=== PATIENT | female | born 1945 | race Asian ===

== ENCOUNTER 2016-10-11 08:30 | Outpatient (CLI) | payer OTHER ==
[~2016-10-11 08:30] MED LIST: ACET-655 PO; ASPI81TA14 PO; DIPY200C PO; FURO20TA67 PO; GLUCOVANCE1 TA1 PO; HYDR25TA60 PO; JANUVIA100 MG PO; LIPITOR20 MG PO; LISI20TA11 PO; METO25TA4 PO; NIFE60TA5 PO; POTA20TA4 PO
== END 2016-10-11 19:27 | disposition home or self-care (01) ==
LOC: RESP 08:30
DX: R06.02 Shortness of breath (principal)
CPT/HCPCS: 94664

== ENCOUNTER 2016-11-15 11:04 | Observation (INO) | payer OTHER ==
[~2016-11-15] VITALS: Ht 157.5 cm; Wt 91.6 kg
[2016-11-15 13:01] VITALS: BP 114/48; TEMP 97.7; Ht 157.5 cm; Wt 91.6 kg
[2016-11-15 14:45] LABS: POTASSIUM 3.4 mmol/L (3.6-5.2)
[2016-11-15 15:02] LABS: PLATELET COUNT 249 K/uL (152-353)
[2016-11-15 16:00] VITALS: BP 153/62; TEMP 97.8
[2016-11-15 20:00] VITALS: BP 138/56; TEMP 98.1
[2016-11-16] VITALS: BP 132/68; TEMP 98.1
[2016-11-16 04:00] VITALS: BP 156/72; TEMP 98.2
[2016-11-16 08:00] VITALS: BP 156/52; TEMP 98.6
[2016-11-16] MEDS ORDERED: METO25TA4 OR (08:49)
[2016-11-16] MEDS ORDERED: JANUVIA100 MG PO (08:50)
[2016-11-16] MEDS ORDERED: GLIP10TA55 PO (08:53)
[2016-11-16] MEDS ORDERED: FORTAMET500 MG PO (08:54)
[2016-11-16 12:00] VITALS: BP 157/59; TEMP 97.6
[2016-11-16 16:00] VITALS: BP 153/60; TEMP 98.6
--- NOTE | 2016-11-16 19:10 | NUR ---
IV D/C'd. NO REDNESS OR EDEMA OBSERVED. DISCHARGE INSTRUCTIONS SIGNED AND GIVEN. Pt. EXIT OUT OF FRONT ENTRANCE VIA W/C. RX. CALLED TO [facility].
== END 2016-11-16 19:10 | disposition home or self-care (01) ==
LOC: MED/SURG 11:04
PROVIDERS: ADMIT Family Medicine
DX: J20.8 Acute bronchitis due to other specified organisms (principal); J01.90 Acute sinusitis, unspecified; J16.8 Pneumonia due to other specified infectious organisms; E11.9 Type 2 diabetes mellitus without complications
CPT/HCPCS: 80053; 82948; 85027; 87040; 87070; 87077; 87185; 87186; 87205; 93005; 94760; 96365; 96366; 96367; 96372; 99220; G0378; G0379

== ENCOUNTER 2017-01-13 15:24 | Outpatient (CLI) | payer OTHER ==
[~2017-01-13 15:24] MED LIST changes: +FORTAMET500 MG PO; +GLIP10TA55 PO; +METO25TA4 OR
== END 2017-01-13 16:30 | disposition home or self-care (01) ==
LOC: RAD 15:24
DX: J18.9 Pneumonia, unspecified organism (principal)

== ENCOUNTER 2017-09-02 18:11 | Emergency (ER) | payer OTHER ==
[~2017-09-02] VITALS: Ht 157.5 cm; Wt 87.5 kg
[2017-09-02 18:45] LABS: PLATELET COUNT 252 K/uL (152-353)
[2017-09-02 19:04] LABS: POTASSIUM 4.2 mmol/L (3.6-5.2)
[2017-09-02 19:25] VITALS: BP 153/47; TEMP 98.3
== END 2017-09-02 19:30 | disposition home or self-care (01) ==
LOC: ED 18:11
DX: R42 Dizziness and giddiness (principal); R00.1 Bradycardia, unspecified; E11.9 Type 2 diabetes mellitus without complications
CPT/HCPCS: 36415; 80053; 81000; 83036; 85027; 93005; 99283

== ENCOUNTER 2017-10-20 11:27 | Observation (INO) | payer OTHER ==
[~2017-10-20] VITALS: Ht 152.4 cm; Wt 90.0 kg
[2017-10-20 12:37] LABS: PLATELET COUNT 284 K/uL (152-353)
[2017-10-20 12:52] LABS: POTASSIUM 3.8 mmol/L (3.6-5.2); SODIUM 137 mmol/L (136-145)
[2017-10-20 12:58] LABS: PARTIAL THROMBOPLASTIN TIME 27.1 SECONDS (24.5-33.6)
[2017-10-20 13:55] VITALS: BP 148/52; TEMP 97.8; Ht 152.4 cm; Wt 90.0 kg
[2017-10-20 16:23] VITALS: BP 140/60; TEMP 97.7
[2017-10-20] MEDS ORDERED: INSUINJP SC (16:37)
[2017-10-20] MEDS ORDERED: METOPROLOL25 M1 SC (16:38)
[2017-10-20 20:00] VITALS: BP 127/53; TEMP 97.9
[2017-10-21] VITALS: BP 142/60; TEMP 98.1
[2017-10-21 04:00] VITALS: BP 166/60; TEMP 97.9
--- NOTE | 2017-10-21 04:32 | NUR ---
I FORGOT TO CHARGE PT FOR HER EKG EARLIER AT 2004 ON 10/20/17 SO I AM TRYING TO GO BACK AND FIX
[2017-10-21 08:00] VITALS: BP 155/57; TEMP 98.3
== END 2017-10-21 11:40 | disposition home or self-care (01) ==
LOC: MED/SURG 11:27
PROVIDERS: ADMIT Family Medicine
DX: R07.89 Other chest pain (principal); E86.0 Dehydration; R00.1 Bradycardia, unspecified; I51.7 Cardiomegaly; E11.9 Type 2 diabetes mellitus without complications
CPT/HCPCS: 36415; 80053; 82550; 83880; 84484; 85027; 85610; 85730; 87040; 93005; 96365; 96366; 99220; G0378; G0379; J1815

== ENCOUNTER 2018-07-13 12:37 | Emergency (ER) | payer OTHER ==
[~2018-07-13] VITALS: Ht 157.5 cm; Wt 87.5 kg
[~2018-07-13 12:37] MED LIST changes: +INSUINJP SC; +METOPROLOL25 M1 SC
[2018-07-13 13:14] LABS: PLATELET COUNT 274 K/uL (152-353)
[2018-07-13 13:24] LABS: POTASSIUM 3.4 mmol/L (3.6-5.2); SODIUM 141 mmol/L (136-145)
[2018-07-13 14:22] VITALS: BP 152/51; TEMP 97.5
== END 2018-07-13 14:30 | disposition home or self-care (01) ==
LOC: ED 12:37
DX: I50.9 Heart failure, unspecified (principal); R00.1 Bradycardia, unspecified; E11.9 Type 2 diabetes mellitus without complications
CPT/HCPCS: 36415; 80053; 81000; 82550; 82553; 83036; 83880; 84443; 84484; 85027; 93005; 99284

== ENCOUNTER 2018-08-24 08:53 | Outpatient (CLI) | payer OTHER ==
[2018-08-24 09:13] LABS: POTASSIUM 4.3 mmol/L (3.6-5.2)
== END 2018-08-24 18:59 | disposition home or self-care (01) ==
LOC: LABW 08:53
PROVIDERS: Nurse Practitioner Adult Health
DX: Z79.899 Other long term (current) drug therapy (principal)
CPT/HCPCS: 36415; 80048

== ENCOUNTER 2018-11-09 11:47 | Outpatient (CLI) | payer OTHER | END 2018-11-09 22:40 | disposition home or self-care (01) | LOC: LABW 11:47 | DX: I27.20 Pulmonary hypertension, unspecified (principal) ==

== ENCOUNTER 2018-11-13 08:46 | Outpatient (CLI) | payer OTHER | END 2018-11-13 19:45 | disposition home or self-care (01) | LOC: RESP 08:46 | DX: I27.20 Pulmonary hypertension, unspecified (principal) ==

== ENCOUNTER 2019-01-05 08:06 | Emergency (ER) | payer OTHER ==
[~2019-01-05] VITALS: Ht 157.5 cm; Wt 87.5 kg
[2019-01-05] VITALS (23 sets, daily range): BP systolic 116–150; BP diastolic 56–97; TEMP 97.5
[~2019-01-05 08:06] MED LIST changes: +METOPROLOL25 M1 PO; -METOPROLOL25 M1 SC
[2019-01-05 08:35] LABS: PLATELET COUNT 254 K/uL (152-353)
[2019-01-05 09:35] LABS: POTASSIUM 4.4 mmol/L (3.6-5.2); SODIUM 139 mmol/L (136-145)
== END 2019-01-05 18:51 | disposition short-term general hospital (02) ==
LOC: ED 08:06 → ICU 11:10 → ED 11:10
PROVIDERS: Family Medicine
DX: R07.89 Other chest pain (principal); R00.0 Tachycardia, unspecified
CPT/HCPCS: 36415; 80053; 81000; 82550; 84484; 85027; 93005; 96374; 96375; 96376; 99285; J3490

== ENCOUNTER 2019-01-05 18:56 | Outpatient (CLI) | payer OTHER | END 2019-01-05 19:26 | disposition short-term general hospital (02) | LOC: AMB 18:56 | DX: R07.89 Other chest pain (principal); R00.0 Tachycardia, unspecified | CPT/HCPCS: A0425; A0429 ==

== ENCOUNTER 2019-01-26 10:04 | Outpatient (CLI) | payer OTHER | END 2019-01-26 19:17 | disposition home or self-care (01) | LOC: RAD 10:04 | DX: M54.17 Radiculopathy, lumbosacral region (principal) ==

== ENCOUNTER 2019-04-10 11:26 | Outpatient (CLI) | payer OTHER | END 2019-04-10 22:11 | disposition home or self-care (01) | LOC: RAD 11:26 | DX: J18.9 Pneumonia, unspecified organism (principal) ==

== ENCOUNTER 2019-10-11 13:05 | Outpatient (CLI) | payer OTHER | END 2019-10-11 21:37 | disposition home or self-care (01) | LOC: MRI 13:05 | DX: M54.17 Radiculopathy, lumbosacral region (principal) ==

== ENCOUNTER 2019-11-17 10:04 | Outpatient (CLI) | payer OTHER | END 2019-11-17 19:25 | disposition home or self-care (01) | LOC: US 10:04 | DX: I73.89 Other specified peripheral vascular diseases (principal) ==

== ENCOUNTER 2019-12-07 09:43 | Outpatient (CLI) | payer OTHER | END 2019-12-07 21:10 | disposition home or self-care (01) | LOC: RAD 09:43 | DX: R05 Cough (principal) ==

== ENCOUNTER 2020-01-29 11:32 | Inpatient (IN) | payer OTHER ==
[~2020-01-29] VITALS: Ht 157.5 cm; Wt 87.1 kg
[2020-01-29 14:45] LABS: PLATELET COUNT 122 K/uL (152-353)
[2020-01-29 15:02] LABS: POTASSIUM 3.8 mmol/L (3.6-5.2); SODIUM 138 mmol/L (136-145)
[2020-01-29 18:39] VITALS: BP 137/50; TEMP 100; Ht 157.5 cm; Wt 87.1 kg
[2020-01-30] VITALS: BP 142/52; TEMP 101.6
[2020-01-30 03:43] VITALS: BP 153/58; TEMP 100.6
[2020-01-30 08:00] VITALS: BP 159/54; TEMP 99.1
[2020-01-30 12:00] VITALS: BP 182/67; TEMP 99.1
[2020-01-30 16:00] VITALS: BP 187/71; TEMP 102.9
[2020-01-30 20:00] VITALS: BP 133/53; TEMP 99.9
[2020-01-31 00:09] VITALS: BP 138/63; TEMP 99.9
[2020-01-31 03:58] VITALS: BP 161/56; TEMP 100.1
[2020-01-31 06:17] LABS: PLATELET COUNT 121 K/uL (152-353)
[2020-01-31 06:35] LABS: POTASSIUM 3.8 mmol/L (3.6-5.2)
[2020-01-31 08:09] VITALS: BP 141/63; TEMP 98.3
[2020-01-31] MEDS ORDERED: LIPITOR20 MG PO (11:40)
[2020-01-31] MEDS ORDERED: BENZONATATE100 MG PO (11:41)
[2020-01-31] MEDS ORDERED: B-121000 MCG SL (11:41)
[2020-01-31] MEDS ORDERED: HUMALOG MI75 MG/25 K SC (11:42)
[2020-01-31] MEDS ORDERED: JANUVIA100 MG PO (11:43)
[2020-01-31] MEDS ORDERED: ZESTRIL40 MG PO (11:44)
[2020-01-31] MEDS ORDERED: NIFE60TA5 PO (11:44)
[2020-01-31] MEDS ORDERED: POTASSIUM CHLO20 ME1 PO (11:45)
[2020-01-31] MEDS ORDERED: BUDE1AER5 INH (11:49)
[2020-01-31 12:21] VITALS: BP 159/69; TEMP 98.8
[2020-01-31 16:00] VITALS: BP 171/60; TEMP 102.8
[2020-01-31 20:00] VITALS: BP 122/43; TEMP 98.5
[2020-02-01] VITALS: BP 132/53; TEMP 99.2
[2020-02-01 04:00] VITALS: BP 156/50; TEMP 98.3
[2020-02-01 05:34] LABS: PLATELET COUNT 113 K/uL (152-353)
[2020-02-01 05:47] LABS: POTASSIUM 3.7 mmol/L (3.6-5.2)
[2020-02-01 08:00] VITALS: BP 179/66; TEMP 99.5
[2020-02-01 12:00] VITALS: BP 145/44; TEMP 99.8
[2020-02-01 16:00] VITALS: BP 137/57; TEMP 99
[2020-02-01 20:00] VITALS: BP 123/39; TEMP 99.1
[2020-02-02] VITALS: BP 128/45; TEMP 99.7
[2020-02-02 04:00] VITALS: BP 104/47; TEMP 98.4
[2020-02-02 08:00] VITALS: BP 123/40; TEMP 97.7
== END 2020-02-02 12:29 | disposition home or self-care (01) | DRG 178 ==
LOC: MED/SURG 11:32
PROVIDERS: ADMIT Family Medicine
DX: U07.1 COVID-19 (principal); I50.22 Chronic systolic (congestive) heart failure; E86.0 Dehydration; R09.02 Hypoxemia; I25.10 Atherosclerotic heart disease of native coronary artery without angina pectoris; R07.9 Chest pain, unspecified; E66.8 Other obesity; Z91.19 Patient's noncompliance with other medical treatment and regimen; I25.2 Old myocardial infarction; E11.42 Type 2 diabetes mellitus with diabetic polyneuropathy; R19.7 Diarrhea, unspecified; I11.0 Hypertensive heart disease with heart failure
CPT/HCPCS: 36415; 36600; 80053; 81000; 82550; 82805; 83605; 83735; 83880; 84100; 84484; 85027; 85379; 85610; 85730; 87040; 87077; 87185; 87186; 87205; 87502; 87635; 87651; 93005; 94667; 94668; 94760; J0456; J1650; J1815; J2405; J3475; U0002

== ENCOUNTER 2020-04-06 14:19 | Outpatient (CLI) | payer OTHER ==
[~2020-04-06 14:19] MED LIST changes: +B-121000 MCG SL; +BENZONATATE100 MG PO; +BUDE1AER5 INH; +HUMALOG MI75 MG/25 K SC; +POTASSIUM CHLO20 ME1 PO; +ZESTRIL40 MG PO
== END 2020-04-06 21:56 | disposition home or self-care (01) ==
LOC: RAD 14:19
DX: U07.1 COVID-19 (principal)

== ENCOUNTER 2020-09-28 09:50 | Outpatient (CLI) | payer OTHER | END 2020-09-28 20:07 | disposition home or self-care (01) | LOC: US 09:50 | PROVIDERS: ATTEND Nurse Practitioner Family | DX: R10.31 Right lower quadrant pain (principal) ==

== ENCOUNTER 2020-09-28 13:48 | Emergency (ER) | payer OTHER ==
[~2020-09-28] VITALS: Ht 157.5 cm; Wt 87.1 kg
[2020-09-28 13:50] VITALS: TEMP 98.1
[2020-09-28 14:25] LABS: PLATELET COUNT 189 K/uL (152-353)
[2020-09-28 14:42] LABS: POTASSIUM 3.7 mmol/L (3.6-5.2); SODIUM 140 mmol/L (136-145)
[2020-09-28 14:43] LABS: PARTIAL THROMBOPLASTIN TIME 26.1 SECONDS (24.5-33.6)
[2020-09-28 16:17] VITALS: BP 166/74
== END 2020-09-28 16:18 | disposition short-term general hospital (02) ==
LOC: ED 13:48
PROVIDERS: Hospitalist
DX: R51.9 Headache, unspecified (principal); H53.8 Other visual disturbances; Z03.818 Encounter for observation for suspected exposure to other biological agents ruled out; Z86.73 Personal history of transient ischemic attack (TIA), and cerebral infarction without residual deficits; Z79.899 Other long term (current) drug therapy; Z51.81 Encounter for therapeutic drug level monitoring
CPT/HCPCS: 80053; 82550; 83880; 84484; 85027; 85610; 85730; 87635; 93005; 96374; 99284; J0360; J1885; J2405; U0003

== ENCOUNTER 2021-08-25 07:42 | Emergency (ER) | payer OTHER ==
[~2021-08-25] VITALS: Ht 157.5 cm; Wt 87.1 kg
[2021-08-25 07:50] VITALS: BP 137/59; TEMP 97.1
[2021-08-25 09:04] LABS: PLATELET COUNT 171 K/uL (152-353)
[2021-08-25 09:11] LABS: POTASSIUM 3.7 mmol/L (3.6-5.2)
== END 2021-08-25 09:38 | disposition home or self-care (01) ==
LOC: ED 07:42
PROVIDERS: Emergency Medicine
DX: M62.830 Muscle spasm of back (principal)
CPT/HCPCS: 80048; 84484; 85027; 93005; 99283

== ENCOUNTER 2021-09-07 08:28 | Outpatient (CLI) | payer OTHER ==
[2021-09-07 09:43] LABS: PLATELET COUNT 182 K/uL (152-353)
== END 2021-09-07 20:34 | disposition home or self-care (01) ==
LOC: RAD 08:28
PROVIDERS: ATTEND Family Medicine
DX: R10.84 Generalized abdominal pain (principal); K59.00 Constipation, unspecified
CPT/HCPCS: 36415; 80053; 82150; 83690; 85027

== ENCOUNTER 2022-03-15 08:52 | Emergency (ER) | payer OTHER ==
[~2022-03-15] VITALS: Ht 157.5 cm; Wt 87.1 kg
[2022-03-15 09:00] VITALS: TEMP 97
[2022-03-15 09:25] LABS: PLATELET COUNT 147 K/uL (152-353)
[2022-03-15 09:39] LABS: POTASSIUM 3.8 mmol/L (3.6-5.2)
[2022-03-15 09:45] LABS: PARTIAL THROMBOPLASTIN TIME 27.4 SECONDS (24.5-33.6)
[2022-03-15 09:58] VITALS: BP 149/57
== END 2022-03-15 10:13 | disposition still patient (30) ==
LOC: ED 08:52
PROVIDERS: Hospitalist
DX: R07.89 Other chest pain (principal); I20.8 Other forms of angina pectoris; Z53.29 Procedure and treatment not carried out because of patient's decision for other reasons
CPT/HCPCS: 80053; 82550; 83880; 84484; 85027; 85610; 85730; 93005; 99284

== ENCOUNTER 2022-06-05 09:41 | Outpatient (CLI) | payer OTHER ==
[2022-06-05 10:37] LABS: PLATELET COUNT 170 K/uL (152-353)
[2022-06-05 11:02] LABS: POTASSIUM 3.8 mmol/L (3.6-5.2)
== END 2022-06-05 19:31 | disposition home or self-care (01) ==
LOC: LABW 09:41
PROVIDERS: ATTEND Nurse Practitioner Adult Health
DX: E78.49 Other hyperlipidemia (principal); I47.1 Supraventricular tachycardia
CPT/HCPCS: 36415; 80053; 80061; 83735; 84439; 84443; 85027

== ENCOUNTER 2022-06-21 14:50 | Observation (INO) | payer OTHER ==
[~2022-06-21] VITALS: Ht 157.5 cm; Wt 88.6 kg
[2022-06-21] VITALS (11 sets, daily range): BP systolic 119–164; BP diastolic 49–68; TEMP 97.2–98; Ht 157.5 cm; Wt 88.6 kg
[2022-06-21 15:31] LABS: PLATELET COUNT 165 K/uL (152-353)
[2022-06-21 16:15] LABS: POTASSIUM 3.6 mmol/L (3.6-5.2)
[2022-06-21 16:24] LABS: PARTIAL THROMBOPLASTIN TIME 30.5 SECONDS (24.5-33.6)
[2022-06-21] MEDS ORDERED: ZESTRIL40 MG PO (20:47)
[2022-06-21] MEDS ORDERED: FAMO20TA4 PO (20:48)
[2022-06-21] MEDS ORDERED: LIPITOR20 MG PO (20:49)
[2022-06-21] MEDS ORDERED: JANUVIA100 MG PO (20:50)
[2022-06-21] MEDS ORDERED: ELIQUIS5 MG PO (20:51)
[2022-06-21] MEDS ORDERED: METO50TA63 PO (20:52)
[2022-06-21] MEDS ORDERED: NIFE60TA5 PO (20:52)
[2022-06-21] MEDS ORDERED: POT CHLORIDE10 MEQ PO (20:53)
[2022-06-21] MEDS ORDERED: HUMALOG MI75 MG/25 K SC (20:53)
[2022-06-22] VITALS: BP 130/47; TEMP 97.7
[2022-06-22 04:00] VITALS: BP 121/38; TEMP 98.8
[2022-06-22 08:00] VITALS: BP 148/59; TEMP 98.4
[2022-06-22] MEDS ORDERED: PANTOPRAZOLE 40MG TA PO (09:15)
== END 2022-06-22 11:10 | disposition home or self-care (01) ==
LOC: ED 14:50 → MED/SURG 17:20
PROVIDERS: Emergency Medicine; ADMIT Internal Medicine; ATTEND Internal Medicine
DX: R07.89 Other chest pain (principal); I10 Essential (primary) hypertension; E66.8 Other obesity; Z68.35 Body mass index [BMI] 35.0-35.9, adult; Z95.0 Presence of cardiac pacemaker; Z86.73 Personal history of transient ischemic attack (TIA), and cerebral infarction without residual deficits; E11.65 Type 2 diabetes mellitus with hyperglycemia; R09.02 Hypoxemia
CPT/HCPCS: 36415; 80053; 82550; 82948; 83880; 84484; 85027; 85379; 85610; 85730; 87635; 93005; 96374; 96375; 99220; 99284; G0378; J1815; J2270; J2405; U0003

== ENCOUNTER 2022-06-23 19:59 | Emergency (ER) | payer OTHER ==
[~2022-06-23] VITALS: Ht 157.5 cm; Wt 88.5 kg
[~2022-06-23 19:59] MED LIST changes: +ELIQUIS5 MG PO; +FAMO20TA4 PO; +METO50TA63 PO; +PANTOPRAZOLE 40MG TA PO; +POT CHLORIDE10 MEQ PO
[2022-06-23 22:00] LABS: PLATELET COUNT 171 K/uL (152-353)
[2022-06-23 22:13] LABS: POTASSIUM 4.2 mmol/L (3.6-5.2)
[2022-06-23 22:32] LABS: PARTIAL THROMBOPLASTIN TIME 29.4 SECONDS (24.5-33.6)
[2022-06-23 23:50] VITALS: BP 170/54; TEMP 98.1
== END 2022-06-23 23:50 | disposition home or self-care (01) ==
LOC: ED 19:59
PROVIDERS: Emergency Medicine
DX: R09.02 Hypoxemia (principal)
CPT/HCPCS: 36415; 80053; 81002; 83690; 84484; 85027; 85610; 85730; 93005; 99283

== ENCOUNTER 2022-12-19 08:51 | Outpatient (CLI) | payer OTHER ==
[2022-12-19 09:26] LABS: POTASSIUM 4.2 mmol/L (3.6-5.2)
== END 2022-12-19 17:00 | disposition home or self-care (01) ==
LOC: LABW 08:51
PROVIDERS: ATTEND Specialist
DX: E78.49 Other hyperlipidemia (principal)
CPT/HCPCS: 36415; 80053; 80061